=== PATIENT | female | born 1965 | race Two or more races ===

== ENCOUNTER 2020-12-18 20:35 | Inpatient (IN) | payer MEDICARE ==
[~2020-12-18] VITALS: Ht 167.6 cm; Wt 72.7 kg
[2020-12-18] MEDS ORDERED: ONDANSETRON ODT 4 MG PO ONE (21:00)
[2020-12-18] MEDS ORDERED: ONDANSETRON ODT 4 MG ONE (21:55)
--- NOTE | 2020-12-18 22:30 | NUR ---
PT AMBULATED TO ROOM, NO ACUTE DISTRESS, AND CHANGED INTO GOWN WITHOUT ISSUE. PT RESTING AND WAITING ON MD TO ASSES.
--- NOTE | 2020-12-18 23:03 | NUR ---
LABS DRAWN, AND PT HAD RADIOLOGICAL ORDERS COMPLETED. CALM AND COOPERATIVE AND IN NO ACUTE DISTRESS.
[2020-12-18 23:16] LABS: BASOPHILS % (AUTO) 1 % (0-1); EOSINOPHILS % (AUTO) 2 % (1-7); LYMPHOCYTES % (AUTO) 48 % (22-44); MEAN CORPUSCULAR HEMOGLOBIN 30.5 pg (27.0-34.8); MEAN CORPUSCULAR HGB CONC 33.8 g/dL (32.4-35.8); MEAN PLATELET VOLUME 8.5 fL (7.4-10.4); MONOCYTES % (AUTO) 7 % (2-9); NEUTROPHILS % (AUTO) 42 % (42-75); PLATELET COUNT 199 x10^3/uL (130-400); RED BLOOD COUNT 3.89 x10^6/uL (3.82-5.3); RED CELL DISTRIBUTION WIDTH 13.9 % (9.6-15.2)
[2020-12-18 23:21] LABS: MD NO
[2020-12-18 23:22] LABS: ALBUMIN 3.5 g/dL (3.4-5.0); ANION GAP 3 mmol/L (5-15); CALCIUM 8.4 mg/dL (8.5-10.1); CHLORIDE 112 mmol/L (98-107); CREATININE 0.56 mg/dL (0.55-1.02)
[2020-12-18 23:26] LABS: TROPONIN I 0.051 ng/mL (0.000-0.045)
[2020-12-19] MEDS ORDERED: ASPIRIN 81 MG TABLET EC ONE (00:16)
[2020-12-19] MEDS ORDERED: ASPIRIN 81 MG TABLET CHEW PO ONE (00:30)
--- NOTE | 2020-12-19 00:37 | NUR ---
PT MEDICATED AND PORTABLE CXRY DONE. NO ACUTE DISTRESS. PT TO BE ADMITTED TO CARDS/TELE
--- NOTE | 2020-12-19 00:42 | NUR ---
REPORT CALLED TO FLOOR RN.
--- NOTE | 2020-12-19 00:58 | NUR ---
PT PROVIDED A SANDWICH AND CHIPS SHE'S HUNGRY. PT TO THE FLOOR AT THIS TIME, NO ACUTE DISTRESS.
[2020-12-19] MEDS ORDERED: DOCUSATE 100 MG CAPSULE PO PRN (01:00)
[2020-12-19] MEDS ORDERED: hydrALAzine 20 MG/ML, 1ML IVPush PRN (01:00)
[2020-12-19] MEDS ORDERED: PROMETHAZINE 25 MG/ML, 1ML IM PRN (01:00)
[2020-12-19] MEDS ORDERED: SODIUM CHLORIDE 0.9% 1,000 ML IV SCH (01:00)
[2020-12-19] MEDS ORDERED: ONDANSETRON 2MG/ML, 2ML IVPush PRN (01:00)
[2020-12-19] MEDS ORDERED: POLYETHYLENE GLYCOL 17 GM PACKET PO PRN (01:00)
[2020-12-19] MEDS ORDERED: ACETAMINOPHEN 325 MG TABLET PO PRN (01:00)
[2020-12-19] MEDS ORDERED: NITROGLYCERIN 0.4 MG BOTTLE (25 TABS) SL PRN (01:00)
[2020-12-19] MEDS ORDERED: ONDANSETRON ODT 4 MG PO PRN (01:00)
[2020-12-19] MEDS ORDERED: BISACODYL 10 MG SUPP PR PRN (01:00)
[2020-12-19] MEDS ORDERED: OXYcodone IR 5MG TABLET PO PRN (01:00)
[2020-12-19 01:10] VITALS: BP 180/95
[2020-12-19] MEDS ORDERED: METF10007 PO ×2 (01:25→16:51)
[2020-12-19] MEDS ORDERED: LOSA100T14 PO ×2 (01:25→16:51)
[2020-12-19] MEDS: HEPARIN 5,000 UNITS/ML, 1ML SQ SCH ×2 (02:29→10:48)
[2020-12-19 05:14] LABS: BASOPHILS % (AUTO) 1 % (0-1); EOSINOPHILS % (AUTO) 3 % (1-7); LYMPHOCYTES % (AUTO) 43 % (22-44); MEAN CORPUSCULAR HEMOGLOBIN 30.9 pg (27.0-34.8); MEAN CORPUSCULAR HGB CONC 34.3 g/dL (32.4-35.8); MEAN PLATELET VOLUME 8.6 fL (7.4-10.4); MONOCYTES % (AUTO) 9 % (2-9); NEUTROPHILS % (AUTO) 45 % (42-75); PLATELET COUNT 167 x10^3/uL (130-400); RED BLOOD COUNT 3.79 x10^6/uL (3.82-5.3); RED CELL DISTRIBUTION WIDTH 14.1 % (9.6-15.2)
[2020-12-19 05:18] LABS: MD NO
[2020-12-19 05:30] LABS: CHLORIDE 114 mmol/L (98-107)
[2020-12-19 05:57] LABS: ALANINE AMINOTRANSFERASE 16 U/L (12-78); ALBUMIN 3.3 g/dL (3.4-5.0); ALKALINE PHOSPHATASE 78 U/L (45-117); ANION GAP 3 mmol/L (5-15); BILIRUBIN,TOTAL 0.4 mg/dL (0.2-1.0); CALCIUM 8.4 mg/dL (8.5-10.1); CHOL/HDL RATIO 2.6; CHOLESTEROL, TOTAL 153 mg/dL (140-239); CREATINE KINASE, TOTAL 106 U/L (26-192); CREATININE 0.59 mg/dL (0.55-1.02); HDL CHOL % 39 % (28-40); HDL CHOLESTEROL (DIRECT) 59 mg/dL (40-60); LDL CHOLESTEROL,CALCULATED 83 mg/dL (54-169); LDL/HDL RATIO 1.4 (0.5-3.0); TOTAL PROTEIN 6.2 g/dL (6.4-8.2); TRIGLYCERIDES 57 mg/dL (50-200); TROPONIN I 0.044 ng/mL (0.000-0.045); VLDL CHOLESTEROL 11 mg/dL (0-25)
[2020-12-19] MEDS ORDERED: ASPIRIN 325 MG TABLET EC PO SCH (06:00)
[2020-12-19] MEDS ORDERED: POTASSIUM CHLORIDE 20 MEQ TAB.ER.PRT PO ONE (07:00)
[2020-12-19] MEDS: INSULIN LISPRO 100 UNITS/ML, PEN SQ-INSULIN SCH ×3 (07:00→16:00)
[2020-12-19 07:30] VITALS: BP 132/70
[2020-12-19 08:16] LABS: TROPONIN I 0.056 ng/mL (0.000-0.045)
[2020-12-19] MEDS ORDERED: REGADENOSON 0.4 MG/5 ML SYRINGE ONE (08:21)
[2020-12-19] MEDS ORDERED: AMLODIPINE 5 MG TABLET PO SCH (09:00)
[2020-12-19] MEDS ORDERED: LOSARTAN 100 MG TAB PO SCH (09:00)
[2020-12-19] MEDS ORDERED: AMLO-211 PO ×2 (12:17→16:51)
[2020-12-19] MEDS ORDERED: HYDR25TA6 PO (12:19)
[2020-12-19] MEDS ORDERED: OMEP20TA9 PO ×2 (12:19→16:51)
[2020-12-19] MEDS ORDERED: PIOG15TA66 PO (12:20)
[2020-12-19 12:57] VITALS: BP 159/88
== END 2020-12-19 17:58 | disposition home or self-care (01) | DRG 640 ==
LOC: ED 23:01 → EDIP 12-19 00:31 → 5SO 12-19 01:06
PROVIDERS: ADMIT Internal Medicine; ATTEND Hospitalist
DX: E87.6 Hypokalemia (principal); I21.A1 Myocardial infarction type 2; M79.10 Myalgia, unspecified site; T50.B95A Adverse effect of other viral vaccines, initial encounter; I25.10 Atherosclerotic heart disease of native coronary artery without angina pectoris; E11.9 Type 2 diabetes mellitus without complications; F17.200 Nicotine dependence, unspecified, uncomplicated; R68.83 Chills (without fever); I10 Essential (primary) hypertension; Z79.899 Other long term (current) drug therapy; Z79.891 Long term (current) use of opiate analgesic; Z79.01 Long term (current) use of anticoagulants; Z79.4 Long term (current) use of insulin; Y92.89 Other specified places as the place of occurrence of the external cause
CPT/HCPCS: 36415; 71045; 78452; 80048; 80053; 80061; 82040; 82550; 82962; 83036; 83735; 84100; 84443; 84484; 85025; 93005; 93017; 93306; 99285; G0378; J1644; J2785; Q0162; A9502; J7030